=== PATIENT | male | born 1980 | race Caucasian/White ===

== ENCOUNTER 2018-04-17 13:25 | Outpatient (CLI) | payer OTHER, SELFPAY ==
--- NOTE | 2018-04-17 12:29 | DI.RAD_ITS ---
SYMPTOMS/DIAGNOSIS: RT WRIST PAIN, M25.531 RIGHT WRIST: Three views. No bone or joint abnormality is identified. The soft tissues are unremarkable. IMPRESSION: Negative examination.
== END 2018-04-17 13:45 ==
PROVIDERS: PCP Family Medicine; Visit Provider Family Medicine
DX: M25.531 Pain in right wrist (principal)
CPT/HCPCS: 73110

== ENCOUNTER 2018-05-29 07:58 | Outpatient (CLI) | payer OTHER, SELFPAY | END 2018-05-29 08:18 | PROVIDERS: PCP Family Medicine; Visit Provider Orthopaedic Surgery | DX: M65.4 Radial styloid tenosynovitis [de Quervain] (principal); Z01.818 Encounter for other preprocedural examination ==

== ENCOUNTER 2018-06-01 08:00 | Day surgery (SDC) | payer OTHER, SELFPAY ==
--- NOTE | 2018-05-29 07:37 | W.PREOPHP ---
Date of service: 05/29/18 Time of Service: 08:34 Assessment and Plan (1) De Quervain's tenosynovitis, right: Current visit: Yes Status: Acute First dorsal extensor compartment release under IV regional anesthesia 06/01/2010 aminah is a right-hand dominant male who 2-1/2 months ago was dealing with a fallen tree moving the cut up firewood when he had a heavy piece overhead getting ready to toss it when the experienced a hyperextension injury Unilaterally to his right wrist since that hyperextension motion he has had persistent pain on the radial side of his wrist despite using ibuprofen 200 mg 5 times a day and placing himself in a wrist immobilizer splint that he had had from an old injury just sitting around at home. He has been troubled by some stiffness, subtle swelling along with decreased motion that has been insidiously worsening since injury several months ago. He has seen his PCP Dr. bailey where x-rays were nondiagnostic of any significant injury. 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 He relates another trigger that really is sets off his wrist and radial side thumb discomfort is when he makes any attempt at jar opening. Dr. Casarez evaluated him recently in the office and diagnosed him with de Quervain's tenosynovitis and recommended a first dorsal extensor compartment release to relieve his chronic pain. Pertinent Surgical Information Denies previous medical history of: stroke, TIA, AK, use of sublingual nitroglycerin, seizures, diabetes, thyroid disease, liver disease, hepatitis, hematologic disorders Review of Systems Review of Systems All systems reviewed & are unremarkable except as noted in HPI and below Constitutional Denies fever(s) and Denies headache(s) ENT Denies headache(s) Cardiovascular Denies chest pain, Denies chest pain with activity, Denies palpitations and Denies dyspnea on exertion Respiratory Denies dyspnea on exertion and Denies wheezing Gastrointestinal Denies abdominal pain, Denies melena, Denies hematochezia, Denies nausea and Denies vomiting Genitourinary Denies hematuria and Denies dysuria Comments: Denies burning sensation with urination Musculoskeletal Reports as per HPI Neurologic Denies headache(s) Psychiatric Denies anxiety and Denies depression Endocrine Denies palpitations Comments: Denies any unplanned weight changes Allergic/Immunologic Denies wheezing [facility] Medical History Hx of gastroesophageal reflux (GERD) (Chronic) Sleep apnea with use of continuous positive airway pressure (CPAP) (Chronic) Social History housing: house marital status: number of children: 2 current occupation: shipping dept at [employer] Smoking/Tobacco Use Status: Never Meds Home Medications Medication Instructions Recorded Confirmed Type calcium carbonate [Tums] 300 mg PO PRN PRN 05/29/18 05/29/18 History ibuprofen 200 - 400 mg PO QID PRN PRN 05/29/18 05/29/18 History multivit with [id number] 1 tab PO DAILY PRN PRN 05/29/18 05/29/18 History [Men's Daily] Allergies Allergy/AdvReac Type Severity Reaction Status Date / Time Penicillins Allergy Mild as child Unverified 05/29/18 08:56 Exam Const General: cooperative HENMT Throat: posterior oropharynx normal Eyes General: appearance normal, both eyes and all related structures Conjunctivae: conjunctivae normal Sclera: sclerae normal Neck Neck: no JVD Carotids: normal carotid upstroke and no bruits Resp Effort & Inspection: normal respiratory effort and able to speak in complete sentences Auscultation: clear to auscultation bilaterally, no rales, no rhonchi and no wheezes Cardio Rate: regular rate Heart Sounds: S1 normal, S2 normal and no murmurs Bruits: no abdominal aortic bruits Pulses: normal peripheral pulses Other: No pulsatile mass noted with palpation over the abdominal aorta GI Palpation: soft and no hepatosplenomegaly Auscultation: normal bowel sounds General: No CVA tenderness Extrem General: no pedal edema Other: right wrist shows marked tenderness over first dorsal extensor compartment . postive finkelsteins test.no snuffbox tenderness.no thumb metacarpal gring pain.wrist nonirritable with excellent dorsiflexion and palmar flexion.
[2018-06-01 08:16] VITALS: BP 114/72; PULSE 57; RESP 16; TEMP 36.4; O2SAT 98
--- NOTE | 2018-06-01 08:27 | HOME_ITS ---
Home Ventilator Equipment Home care company [employer] Reason: Obstructive Sleep Apnea Make: Respironics Model: Dreamstation Mask type: Nasal pillows Mask size: Mode: BiPAP Settings: 15/5 Oxygen bleed in (lpm): 0 Condition: Good Date last checked: 06/01/18 Year of last sleep study: Compliance Daily Comments:
[2018-06-01] MEDS: Lactated Ringers 1,000 ML 80 ML IV (08:55)
--- NOTE | 2018-06-01 11:00 | W.PM.DSUDISC ---
Discharge Plan Discharge Details Reason For Visit: (R) DEQUERVAIN'S TENDONITIS Attending Provider: Serge Casarez Primary Care Provider: Luis Alberto Guevara Home Meds and New Rx's Prescriptions: No Action calcium carbonate [Tums] 300 mg (750 mg) Tablet,Chewable 300 mg PO PRN PRNRF: 0 ibuprofen 200 mg Tablet 200 - 400 mg PO QID PRN PRNRF: 0 multivit with [id number] [Men's Daily] 0.4-600 mg-mcg Capsule 1 tab PO DAILY PRN PRNRF: 0 DS: Diagnosis Discharge Diagnosis (1) De Quervain's tenosynovitis, right: Start date: 06/01/18 Start time: 11:00 Status: Acute
--- NOTE | 2018-06-01 11:01 | W.PM.DSUDISC ---
Discharge Plan Disposition Patient Disposition: HOME Condition: Good Discharge Details Reason For Visit: (R) DEQUERVAIN'S TENDONITIS Attending Provider: Serge Casarez Primary Care Provider: Luis Alberto Guevara [place] Meds and New Rx's Prescriptions: New ibuprofen 800 mg tablet 800 mg PO TID Qty: 30 RF: 0 hydrocodone-acetaminophen 5-325 mg tablet 1 tab PO Q6H PRN (Reason: pain) Qty: 7 RF: 0 Continue calcium carbonate [Tums] 300 mg (750 mg) Tablet,Chewable 300 mg PO PRN PRNRF: 0 multivit with cis-HI-nlyzpqsq [Men's Daily] 0.4-600 mg-mcg Capsule 1 tab PO DAILY PRN PRNRF: 0 Discontinued ibuprofen 200 mg Tablet 200 - 400 mg PO QID PRN PRNRF: 0 Discharge Instructions Additional Instructions: Elevate R hand above heart level as much as possible for next 24 hours. Wiggle fingers R hand 10 times/hour when awake to prevent swelling. Keep dressings and splint dry and intact for 5 days. After 5 days, remove splint AND dressings and begin to move R wrist. After you remove dressings, you may shower or bathe and get incision wet. Leave incision uncovered when it is dry and sealed. You may use R hand as much as your discomfort allows. Take ibuprofen 3 times/day for 10 days to reduce swelling and inflammation. Take hydrocodone if needed, for breakthru pain. Follow up in 's office in 10-14 days. Referrals: Serge Casarez MD [ [facility]] - (f/u in 10-14 days) Equipment/Supplies: Splint Activity:: Activity as Tolerated Remove Dressings/Wound Care:: Do Not Remove Shower/Bathe:: Cover Diet:: As Tolerated Discharge Orders Discharge Orders: Discharge Order (Routine); Ordered 06/01/18 Ordered By: Serge Casarez DS: Diagnosis Discharge Diagnosis (1) De Quervain's tenosynovitis, right: Status: Acute
--- NOTE | 2018-06-01 11:11 | PDOC.DSDIS_ITS ---
Discharge Plan Disposition Patient Disposition: HOME Condition: Good Discharge Details Reason For Visit: (R) DEQUERVAIN'S TENDONITIS Attending Provider: Serge Casarez Primary Care Provider: Luis Alberto Guevara [place] Meds and New Rx's Prescriptions: New ibuprofen 800 mg tablet 800 mg PO TID Qty: 30 RF: 0 hydrocodone-acetaminophen 5-325 mg tablet 1 tab PO Q6H PRN (Reason: pain) Qty: 7 RF: 0 Continue calcium carbonate [Tums] 300 mg (750 mg) Tablet,Chewable 300 mg PO PRN PRNRF: 0 multivit with [id number]-HG-xunnsixe [Men's Daily] 0.4-600 mg-mcg Capsule 1 tab PO DAILY PRN PRNRF: 0 Discontinued ibuprofen 200 mg Tablet 200 - 400 mg PO QID PRN PRNRF: 0 Discharge Instructions Additional Instructions: Elevate R hand above heart level as much as possible for next 24 hours. Wiggle fingers R hand 10 times/hour when awake to prevent swelling. Keep dressings and splint dry and intact for 5 days. After 5 days, remove splint AND dressings and begin to move R wrist. After you remove dressings, you may shower or bathe and get incision wet. Leave incision uncovered when it is dry and sealed. You may use R hand as much as your discomfort allows. Take ibuprofen 3 times/day for 10 days to reduce swelling and inflammation. Take hydrocodone if needed, for breakthru pain. Follow up in 's office in 10-14 days. Referrals: Serge Casarez MD [ [facility] STAFF PHYSICIAN] - (f/u in 10-14 days) Equipment/Supplies: Splint Activity:: Activity as Tolerated Remove Dressings/Wound Care:: Do Not Remove Shower/Bathe:: Cover Diet:: As Tolerated Discharge Orders Discharge Orders: Discharge Order (Routine); Ordered 06/01/18 Ordered By: Serge Casarez DS: Diagnosis Discharge Diagnosis (1) De Quervain's tenosynovitis, right: Status: Acute
[2018-06-01 11:39] VITALS: BP 119/73; PULSE 58; RESP 16; TEMP 36.1; O2SAT 99
--- NOTE | 2018-06-01 17:19 | ROE_ITS ---
DATE OF PROCEDURE: June 01, 2018 PREOPERATIVE DIAGNOSIS: De Quervain's tenosynovitis of the first dorsal extensor compartment, right wrist. POSTOPERATIVE DIAGNOSIS: Same. PROCEDURE: #1. Tendon sheath incision at radial styloid for de Quervain's tenosynovitis of the right wrist. #2. Application of short arm radial thumb spica splint. SURGEON: Serge Casarez M.D. ANESTHESIA: IV regional. INDICATIONS: This is a 37-year-old white male who has suffered from radial wrist pain for over two m onths following some minor trauma. He also has significant pain with moving his thumb. Splinting dumont s not alleviated his symptoms. His symptoms were localized to the first dorsal extensor compartment at the radial styloid. His examination was consistent with de Quervain's tenosynovitis of the first dorsal extensor compartment. Since he has suffered for two months without benefit, surgery was recom mended. The risks and complications of the procedure were explained to the patient in detail preoper atively. PROCEDURE: The patient was taken to the Operating Room on 06/01/18. He was placed supine on the oper ating table and an IV regional anesthetic was administered to the right upper extremity. Once good a nesthesia was obtained, the right hand, wrist, and forearm were prepped and draped free in the usual sterile fashion. An incision was made directly over the first dorsal extensor compartment at the rad ial styloid measuring about 3 inches in length. The incision was carried down through the skin into the subcu. Blunt-tipped Littler scissors were then used to mobilize the soft tissues away from the f irst dorsal extensor compartment. The first dorsal extensor compartment was then incised in line wit h its tendons. Once the compartment sheath was incised, there was an outpouring of synovial fluid. Multiple tendon slips were then mobilized and retracted from the first dorsal extensor compartment. On further inspection there was found to be one tendon slip that was contained in a separate compartm ent within the first dorsal extensor compartment. The accessory compartment was then excised, freein g this tendon slip. A synovectomy was performed of any abnormal synovium around the tendon slips. The wound was irrigated with Betadine and saline solution. The wound margins were infiltrated with 0 .5% Marcaine with epinephrine solution. The skin edges were approximated with interrupted #4-0 nylon sutures. The wound was dressed with Xeroform gauze, sterile gauze 4x4s, an ABD pad, and wrapped wit h a 4-inch Kerlix bandage. A fiberglass radial thumb spica splint was fashioned and applied to the r ight wrist and thumb and it was held down with a 3-inch Gary bandage. The tourniquet was released at this point and the IV regional anesthesia was reversed without complications. The patient was discha rged to the Day Surgery Unit in good condition. The patient was instructions to try to elevate his right hand above heart level as much as possible f or the next 24 hours. He is encouraged to bend and straighten the fingers and thumb of his right subramanian d 10 times an hour while awake to prevent swelling. He is to keep the dressings and splint intact an d dry for five days. After five days he is to remove his splint and dressings and begin to move his right wrist. When he has removed the dressings from his right wrist he may shower or bathe and get t he incision wet. He is instructed to leave the incision uncovered when it is dry and sealed. He can use his right wrist and hand as much as discomfort allows. He will follow up in Dr. Casarez's office in 10 to 14 days. He is given a prescription for inflammation of ibuprofen 800 mg p.o. t.i.d. for 1 0 days and a prescription for breakthrough pain of hydrocodone/APAP 5 mg/325 mg, 1 tablet every 6 parminder rs as needed.
== END 2018-06-01 12:19 | disposition home or self-care (01) ==
PROVIDERS: PCP Family Medicine; Visit Provider Orthopaedic Surgery
PROC: (CPT 25000; principal; 2018-06-01 09:00)
DX: M65.4 Radial styloid tenosynovitis [de Quervain] (principal)
CPT/HCPCS: 25000; J0690; J2250

== ENCOUNTER 2022-11-09 16:36 | Emergency (ER) | payer OTHER, SELFPAY ==
[2022-11-09 16:39] VITALS: BP 149/100; PULSE 74; RESP 18; TEMP 36.8; O2SAT 98
--- NOTE | 2022-11-09 16:45 | DI.RAD_ITS ---
Exam(s) XR SHOULDER LT COMPLETE 2+V EXAM: XR SHOULDER LT COMPLETE 2+V CLINICAL HISTORY: pain. TECHNIQUE: 2D digital imaging was performed. COMPARISON: No exams were available for comparison FINDINGS: 3 views No evidence of fracture or dislocation nor abnormal soft tissue calcifications. Subacromial space ap pears unremarkable. There are no degenerative changes in the glenohumeral and AC joints. Osseous gl enoid appears unremarkable. Clavicle unremarkable. Small degenerative cysts are noted in the lateral half of the humeral head. IMPRESSION: There degenerative cyst in the lateral aspect of the humeral head. Subacromial space is not diminish ed. If clinically indicated further study with MRI can be performed to determine if there is significant rotator cuff pathology. DATA REPOSITORY: RADIATION DOSE DELIVERED:
--- NOTE | 2022-11-09 16:54 | ED.GENADUL_ITS ---
Discharge Plan Disposition Patient Disposition: Home Condition: Stable Discharge Details Clinical Impression: Strain of left trapezius muscle Primary Care Provider: Luis Alberto Guevara ED Provider: Gerald Cardneas Home Meds and New Rx's Prescriptions: New cyclobenzaprine 10 mg tablet 10 mg PO TID PRNQty: 20 0RF Continued calcium carbonate [Tums] 300 mg (750 mg) Tablet,Chewable 300 mg PO PRN PRN Men's Daily 0.4-600 mg-mcg Capsule 1 tab PO DAILY PRN PRN ibuprofen 800 mg tablet 800 mg PO TID Qty: 30 0RF Discharge Instructions Additional Instructions: your xray did not show concerning findings you can take 1000mg tylenol and 600mg ibuprofen every 6 hours for pain as needed if not better in a week follow up with your primary care provider if you feel more ill, have severe worsening pain or new symptoms such as difficulty breathing return to the emergency department Medical Decision Making 42 yo male with no significant pmhx comes in with left upper back/shoulder pain since a week ago after throwing a [employer] football. Denies falls or trauma. Denies chest pain, dyspnea, fevers, chills. He localizes the pain to the left upper back and posterior shoulder. He has full rom of the shoulder, no warmth, no visible or palpable deformity, no c/t/l spine tenderness. Intact sensation and pulses in the hand. Seems consistent with trapezius strain, will obtain xrays to further evaluate pt stable, xray unremarkable, suspect trapezius strain vs intermittent spasm, will have him try cyclobenzaprine and f/u with pcp if pain not improving in a week, return precautions given Differential Diagnosis Differential Diagnosis: strain, spasm Imaging Data Radiologic Study: Attestation: I personally reviewed and interpreted this imaging study as follows: Imaging: X-Ray Radiologist's impression: PROCEDURE INFORMATION: Exam: XR Left Shoulder Exam date and time: 11/09/2022 4:58 PM Age: 42 years old Clinical indication: Pain; Shoulder; Left TECHNIQUE: Imaging protocol: Radiologic exam of the left shoulder. Views: 2 or more views. COMPARISON: No relevant prior studies available. FINDINGS: Bones/joints: Normal. Soft tissues: Normal. IMPRESSION: No evidence for acute abnormality. HPI General Mode of arrival: ambulatory . Date/Time Provider Initiated Documentation: 11/09/22 16:43 . Limitations to Documentation: no limitations . Information obtained by: patient . History of Present Illness 42 year old M presents to the emergency department with the chief complaint of left shoulder/upper back pain, described as moderate, Patient reports no radiation. Patient started experiencing this week(s) (1) and it has been constant. Rest improves symptom(s), Movement worsens symptoms . Patient notes no other symptoms.. Related Data Home Medications Medication Instructions Recorded Confirmed calcium carbonate 300 mg (750 mg) 300 mg PO PRN PRN 05/29/18 11/09/22 chewable tablet (Tums) multivit with minerals-folic 1 tab PO DAILY PRN PRN 05/29/18 11/09/22 acid-lycopene 0.4 mg-600 mcg capsule (Men's Daily) ibuprofen 800 mg tablet 800 mg PO TID inflammation #30 tabs 06/01/18 11/09/22 cyclobenzaprine 10 mg tablet 10 mg PO TID PRN #20 tabs 11/09/22 Previous Rx's Medication Instructions Recorded ibuprofen 800 mg tablet 800 mg PO TID inflammation #30 tabs 06/01/18 cyclobenzaprine 10 mg tablet 10 mg PO TID PRN #20 tabs 11/09/22 Allergies Allergy/AdvReac Type Severity Reaction Status Date / Time Penicillins Allergy Mild as child Unverified 06/01/18 08:13 General Stated Complaint: Nk/Back Pain OG: 4 Review of Systems All systems reviewed & are unremarkable except as noted in HPI and below Constitutional Constitutional: Denies chills, Denies fever(s) and Denies weakness Eyes Eyes: Denies loss of vision Cardiovascular Cardiovascular: Denies chest pain and Denies dyspnea Respiratory Respiratory: Denies cough and Denies dyspnea Gastrointestinal Gastrointestinal: Denies abdominal pain, Denies nausea and Denies vomiting Integumentary/Breasts Skin/Breast: Denies rash Neurologic Neurologic: Denies loss of vision and Denies weakness PFSH All Active Problems (Updated 11/09/22 @ 17:35 by Gerald Cardenas MD) Strain of left trapezius muscle (Acute) De Quervain's tenosynovitis, right (Acute) Medical History (Updated 11/09/22 @ 17:35 by Gerald Cardenas MD) Hx of gastroesophageal reflux (GERD) Sleep apnea with use of continuous positive airway pressure (CPAP) Social History (Updated 11/02/18 @ 09:14 by LANCE Brown) Smoking/Tobacco Use Status: Never Smoking risk assessment performed?: Yes Drug use: Rarely Housing: house Number of Children: 2 current occupation: shipping dept at [employer] What type of physical activity do you participate in: weight lifting Do you feel safe at home: Yes Do you feel safe in your relationship?: Yes Exam Const General: no acute distress Orientation: alert HENMT Head: normal to inspection Ears: external ears normal General nose exam: external nose normal Mouth: moist mucous membranes Eyes General: appearance normal, both eyes and all related structures Neck Neck: normal visual inspection Resp Effort & Inspection: normal respiratory effort and able to speak in complete sentences Cardio Rate: regular rate Skin General skin exam: no rashes or lesions noted Neuro General: patient alert and patient oriented x3 Extrem General: normal to inspection, full ROM and capillary refill normal Psych Mental Status: mental status grossly normal Course Vital Signs Vital signs: Vital Signs Temperature 36.8 C 11/09/22 16:39 Pulse 74 11/09/22 16:39 Respiratory Rate 18 11/09/22 16:39 Blood Pressure 149/100 H 11/09/22 16:39 Pulse Oximetry 98 11/09/22 16:39 Temperature 36.8 C 11/09/22 16:39 Temperature Source Skin 11/09/22 16:39 Pulse 74 11/09/22 16:39 Respiratory Rate 18 11/09/22 16:39 Respiratory Effort Normal, Non-Labored 11/09/22 16:50 Blood Pressure 149/100 H 11/09/22 16:39 Blood Pressure Position Sitting 11/09/22 16:39 Pulse Oximetry 98 11/09/22 16:39 Oxygen Delivery Method Room Air 11/09/22 16:39 Oxygen Flow Rate 0 11/09/22 16:39 Pain Level 6 11/09/22 16:39
--- NOTE | 2022-11-09 17:04 | DI.VRAD_ITS ---
PROCEDURE INFORMATION: Exam: XR Left Shoulder Exam date and time: 11/09/2022 4:58 PM Age: 42 years old Clinical indication: Pain; Shoulder; Left TECHNIQUE: Imaging protocol: Radiologic exam of the left shoulder. Views: 2 or more views. COMPARISON: No relevant prior studies available. FINDINGS: Bones/joints: Normal. Soft tissues: Normal. IMPRESSION: No evidence for acute abnormality. Dictated and Authenticated by: Argentina Moffett MD. Ordering:GAMAL Duarte MD
[2022-11-09 17:40] VITALS: BP 142/95; PULSE 81; RESP 18; O2SAT 98
== END 2022-11-09 17:41 | disposition home or self-care (01) ==
PROVIDERS: Emergency Provider Emergency Medicine; PCP Family Medicine
DX: S46.812A Strain of other muscles, fascia and tendons at shoulder and upper arm level, left arm, initial encounter (principal); X50.9XXA Other and unspecified overexertion or strenuous movements or postures, initial encounter; Y93.61 Activity, american tackle football
CPT/HCPCS: 99283; 73030; 99284